=== PATIENT | male | born 1995 | race Caucasian/White ===

== ENCOUNTER 2018-05-30 11:53 | Emergency (ER) | payer OTHER ==
[~2018-05-30] VITALS: Wt 99.8 kg
[~2018-05-30 11:53] MED LIST: ATARAX25 MG PO; KENALOG0.1% TP; PREDNICOT20 MG PO; TYLENOL W/CODEI1 TA2 PO
== END 2018-05-30 13:58 | disposition home or self-care (01) ==
LOC: ED 11:53
DX: S93.402A Sprain of unspecified ligament of left ankle, initial encounter (principal); W22.8XXA Striking against or struck by other objects, initial encounter; Y93.39 Activity, other involving climbing, rappelling and jumping off; Y92.89 Other specified places as the place of occurrence of the external cause; Y99.9 Unspecified external cause status